=== PATIENT | female | born 2005 | race Caucasian/White ===

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

== ENCOUNTER 2023-02-13 15:37 | Emergency (ER) | payer OTHER, SELFPAY ==
[2023-02-13 15:43] VITALS: BP 118/72; PULSE 70; RESP 18; O2SAT 98; BMI 28.3
[2023-02-13 16:23] LABS: Add Manual Diff / Slide Review NO; Basophils Absolute Auto 0 /uL (0-100); Basophils Percent Auto 0.3 % (0-2); Eosinophils Absolute Auto 100 /uL (0-450); Eosinophils Percent Auto 1.4 % (2-4); Hematocrit 39.7 % (36-46); Hemoglobin 13.4 g/dL (12.0-16.0); Lymphocytes Absolute Auto 3300 /uL (1100-4500); Lymphocytes Percent Auto 37.8 % (25-40); Mean Corpuscular HGB Conc 33.9 % (30-36); Mean Corpuscular Hemoglobin 27.8 PG (26-34); Mean Corpuscular Volume 82.2 fL (80-100); Monocytes Absolute Auto 500 /uL (0-900); Monocytes Percent Auto 6.1 % (3-14); Neutrophils Absolute Auto 4700 /uL (1500-7000); Neutrophils Percent Auto 54.4 % (50-75); Platelet Count 338 X10^3/uL (150-400); Red Blood Cell Count 4.83 X10^6/uL (4.0-5.2); Red Cell Distribution Width 13.9 % (11.6-14.8); White Blood Cell Count 8.7 X10^3/uL (4.5-11.0)
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
[2023-02-13 16:39] LABS: Acetaminophen < 10 ug/mL (10-30); Alanine Aminotransferase 18 IU/L (<35); Albumin 4.3 g/dL (3.5-5.0); Albumin Globulin Ratio 1.5 (1.0-2.8); Alkaline Phosphatase 47 U/L (38-126); Aspartate Aminotransferase 23 IU/L (14-36); BUN Creatinine Ratio 6.9 (6-22); Bilirubin Total 0.4 mg/dL (0.2-1.3); Blood Urea Nitrogen 4 mg/dL (7-17); Carbon Dioxide 24 mmol/L (22-32); Chloride 104 mmol/L (98-107); Estimated Glomerular Filt Rate > 60 mL/min (>60); Ethanol (ETOH) < 10 mg/dL; Globulin 2.9 g/dL (1.7-4.1); Glucose 118 mg/dL (70-100); HEMOLYSIS < 15 (0-50); Potassium 3.5 mmol/L (3.4-5.1); Salicylate < 1.0 mg/dL (<20); Sodium 139 mmol/L (137-145); Total Protein 7.2 g/dL (6.3-8.2)
[2023-02-13 16:57] LABS: COVID19 -Nasal RAPID Negative (Negative)
[2023-02-13 17:01] LABS: Free T4, Direct Thyroxine 1.06 ng/dL (0.78-2.19)
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
[2023-02-13 17:15] LABS: Thyroid Stimulating Hormone 1.02 uIU/mL (0.47-4.68)
[2023-02-13 17:47] LABS: UR Morphine/Opiate cutoff 300 Negative (Negative); Ur Creatinine Normal (Normal); Ur Specific Gravity Normal (Normal); Urine Amphetamines Negative (Negative); Urine Barbiturates Negative (Negative); Urine Benzodiazepines Negative (Negative); Urine Cocaine Negative (Negative); Urine MDMA Negative (Negative); Urine Methadone Negative (Negative); Urine Methamphetamines Negative (Negative); Urine Oxycodone Negative (Negative); Urine Phencyclidine Negative (Negative); Urine Tetrahydrocannabinol Negative (Negative); Urine Tricyclic Antidepressant Negative (Negative); Urine pH Normal (Normal)
--- NOTE | 2023-02-13 19:47 | CM.SWNOTE ---
INFORMATION TECHNOLOGY ADMINISTRATOR Note [facility] accepts patient for inpatient hospitalization. Accepting provider is Dr. Toribio, intake Sgt. Harshal. Patient is accepted at anytime this evening. Nurse to Nurse: [phone] [facility] calls [facility] for transport, S can arrive at 2009. Plan: Patient to transfer to [facility] via [facility] for inpatient hospitalization. Constance Mares, MILLINERY BLOCKER
[2023-02-13 20:28] VITALS: BP 110/65; PULSE 83; RESP 16; O2SAT 97
== END 2023-02-13 20:40 ==
PROVIDERS: Emergency Medicine; Emergency Provider Emergency Medicine
DX: R45.851 Suicidal ideations (principal); Z20.822 Contact with and (suspected) exposure to COVID-19
CPT/HCPCS: 36415; 80053; 80305; 80320; 80329; 81003; 81025; 84439; 84443; 85025; 87635; 99284; 99285; C9803; G0480

== ENCOUNTER 2023-08-06 13:14 | Emergency (ER) | payer OTHER, SELFPAY ==
[2023-08-06 13:21] VITALS: BP 106/60; PULSE 81; RESP 18; TEMP 36.8; O2SAT 96; BMI 24.0
--- NOTE | 2023-08-06 14:29 | DI.RAD.S_ITS ---
PROCEDURE: XR CHEST 1V INDICATIONS: chest pain TECHNIQUE: One view of the chest was acquired. COMPARISON: None. FINDINGS: Surgical changes and devices: None. Lungs and pleura: On this semiupright portable chest examination, no large pneumothorax or large pleural effusions are seen. No focal infiltrates are seen. Mediastinum: Mediastinal contours appear normal. Heart size is normal. Bones and chest wall: No suspicious bony lesions. Overlying soft tissues appear unremarkable. IMPRESSION: Portable chest within normal limits. Dictated by: Doron Williamson M.D. on 08/06/2023 at 13:56 Approved by: Doron Williamson M.D. on 08/06/2023 at 13:57
[2023-08-06] MEDS: SODIUM CHLORIDE 0.9% 1,000 ML 1000 ML IV (14:42)
[2023-08-06 14:47] LABS: Add Manual Diff / Slide Review NO; Basophils Absolute Auto 0 /uL (0-100); Basophils Percent Auto 0.3 % (0-2); Eosinophils Absolute Auto 100 /uL (0-450); Eosinophils Percent Auto 1.2 % (2-4); Hematocrit 38.2 % (36-46); Hemoglobin 13.1 g/dL (12.0-16.0); Lymphocytes Absolute Auto 2900 /uL (1100-4500); Lymphocytes Percent Auto 38.1 % (25-40); Mean Corpuscular HGB Conc 34.4 % (30-36); Mean Corpuscular Hemoglobin 28.4 PG (26-34); Mean Corpuscular Volume 82.6 fL (80-100); Monocytes Absolute Auto 400 /uL (0-900); Monocytes Percent Auto 5.3 % (3-14); Neutrophils Absolute Auto 4200 /uL (1500-7000); Neutrophils Percent Auto 55.1 % (50-75); Platelet Count 312 X10^3/uL (150-400); Red Blood Cell Count 4.62 X10^6/uL (4.0-5.2); Red Cell Distribution Width 13.6 % (11.6-14.8); White Blood Cell Count 7.5 X10^3/uL (4.5-11.0)
[2023-08-06 14:53] LABS: D Dimer < 215 ng/ml (<500)
[2023-08-06 14:55] LABS: Alanine Aminotransferase 14 IU/L (<35); Albumin 4.1 g/dL (3.5-5.0); Albumin Globulin Ratio 1.4 (1.0-2.8); Alkaline Phosphatase 35 U/L (38-126); Aspartate Aminotransferase 22 IU/L (14-36); BUN Creatinine Ratio 12.1 (6-22); Bilirubin Total 0.4 mg/dL (0.2-1.3); Blood Urea Nitrogen 8 mg/dL (7-17); Calcium 9.4 mg/dL (8.4-10.2); Carbon Dioxide 27 mmol/L (22-32); Chloride 105 mmol/L (98-107); Creatine Kinase 67 U/L (30-135); Estimated Glomerular Filt Rate > 60 mL/min (>60); Glucose 112 mg/dL (70-100); HEMOLYSIS < 15 (0-50); Lipase 61 U/L (23-300); Potassium 3.8 mmol/L (3.4-5.1); Sodium 139 mmol/L (137-145); Total Protein 7.1 g/dL (6.3-8.2)
[2023-08-06 15:07] LABS: NT-proBNP (BNP-Adult 18+) < 20 pg/mL (<125); Troponin I < 0.012 ng/mL (0.01-0.034)
--- NOTE | 2023-08-06 15:07 | ED.SYNCOPE ---
HPI - Syncope General Chief Complaint: Syncope Stated Complaint: fainting Time Seen by Provider: 08/06/23 14:29 Source: patient Mode of arrival: Ambulatory Limitations: no limitations History of Present Illness HPI narrative: 18-year-old female report of recurrent episodes of passing out/loss of consciousness. Patient states she is had 9 episodes in the last year most recent was last Monday. She states it is always when she is upright it has never occurred when she seated or lying down. She states typically she will get black out of revision feel dizzy and patient states sometimes she will be able to sit down before occurs but not always. Today she had been looking for chapstick went to get some cream cheese because she was hungry and then realized she would use the bathroom and headed to the bathroom to urinate. She states she got to the bathroom felt dizzy her vision got black she has onto the pillar but she states she fell backwards and hit her head. Patient states these episodes have been witnessed multiple times. She describes 2-10 minutes of unconsciousness. She states sometimes Ob shaking that she is aware of. She denies any bowel or bladder incontinence. She is not sure if she is had any cuts in her mouth afterwards. She states she feels a little short of breath right for happens. Denying any chest pain or pressure. No palpitations. No nausea no vomiting, no diarrhea constipation, no black or bloody stools. Patient states she has been in touch with her primary care physician who has ordered a information systems coordinator but will not be occurring until October. Patient is on venlafaxine, has a Nexplanon in his on trazodone daily she states these are longstanding medications. No new medications or new dosages. [place] teeth removed 5 years ago and other surgeries. No known drug allergies. No tobacco, alcohol or illicit. Denies any cardiac, embolic or syncopal family history. Dr. Robb is her primary care. Patient states she had a tele visit at the end of the month with her physician. Discussed with patient she does not think it is a cardiac issue or rhythm issue. When asked if she is any thoughts about white be the source she states she is not sure but does not think it is that. She does express concern about seizure like activity. Related Data Allergies Allergy/AdvReac Type Severity Reaction Status Date / Time No Known Drug Allergies Allergy Verified 08/06/23 13:28 Review of Systems Review of Systems ROS Unobtainable: All systems reviewed & are unremarkable except as noted in HPI and below Patient History Social History Smoking Status: Never smoker Smoking Status: Never smoker Substance Use Type: does not use Exam Narrative Exam Narrative: GEN: well nourished, well appearing female, alert and oriented x 3, patient appears to be in mild distress. Slightly pressured speech. HEENT: Atraumatic, pupils are equal round reactive to light, extraocular movements are intact, nares are clear, TMs are clear with no fluid, there is no conjunctival pallor. Clear speech. HEART: Regular rate and rhythm without murmur, clicks, rubs. pulses are equal in upper and lower extremities LUNGS:Lungs clear to auscultation, no wheezes, rales, crackles, chest moves symmetrically, no tachypnea accessory muscle use ABD:bowel sounds normal, soft, non-tender, no guarding, rebound, rigidity, no masses noted, no hepatosplenomegaly :No CVA tenderness MSCL: Non-tender, no muscle atrophy, muscles strength 5/5 upper and lower extremities, full range of motion, normal gait NEURO:CN 2-12 intact, sensation normal, no dysarthria or aphasia SKIN: No rash, no erythema no ecchymosis or other skin changes noted. Initial Vital Signs Initial Vital Signs: Vital Signs Temperature 98.3 F 08/06/23 13:21 Pulse Rate 81 08/06/23 13:21 Respiratory Rate 18 08/06/23 13:21 Blood Pressure 106/60 08/06/23 13:21 Pulse Oximetry 96 08/06/23 13:21 Oxygen Delivery Method Room Air 08/06/23 13:21 Scores GCS Julianne coma scale eye opening: Spontaneous Francis coma scale verbal response: Orientated Francis coma scale motor response: Obey commands Francis coma scale total score: 15 Course Orders Ordered: ED Orders 08/06/23 13:33 EKG-12 Lead Stat 08/06/23 14:29 XR chest 1V Stat 08/06/23 14:35 Complete Blood Count AUTO DIFF Stat Comprehensive Metabolic Panel Stat D Dimer Stat Lipase Stat NT-proBNP (BNP-Adult 18+) Stat Troponin & CK Cardiac Panel Stat Discontinued Medications Aspirin (Aspirin 81 Mg Chew Tab) 324 mg PO NOW ONE Stop: 08/06/23 14:30 Last Admin: 08/06/23 15:01 Dose: Not Given Documented By: SOPHIA Sodium Chloride (Normal Saline 0.9%) 1,000 mls @ 1,000 mls/hr IV BOLUS ONE Stop: 08/06/23 15:28 Last Infusion: 08/06/23 15:42 Dose: Infused Documented By: Admin: 08/06/23 14:42 Dose: 1,000 mls/hr Documented By: HOU[place]ON Vital Signs Vital signs: Vital Signs - 8 hr 08/06/23 13:21 08/06/23 15:49 08/06/23 15:49 Temperature 98.3 F Pulse Rate 81 68 Respiratory Rate 18 16 Blood Pressure 106/60 102/60 Pulse Oximetry 96 100 Oxygen Delivery Method Room Air 08/06/23 15:51 Temperature Pulse Rate 70 Respiratory Rate Blood Pressure 102/60 Pulse Oximetry 100 Oxygen Delivery Method Room Air MDM - Syncope Lab Data 08/06/23 14:35 08/06/23 14:35 Labs: Lab Results 08/06/23 Range/Units 14:35 WBC 7.5 (4.5-11.0) X10^3/uL RBC 4.62 (4.0-5.2) X10^6/uL Hgb 13.1 (12.0-16.0) g/dL Hct 38.2 (36-46) % MCV 82.6 (80-100) fL MCH 28.4 (26-34) PG MCHC 34.4 (30-36) % RDW 13.6 (11.6-14.8) % Plt Count 312 (150-400) X10^3/uL Neut % (Auto) 55.1 (50-75) % Lymph % (Auto) 38.1 (25-40) % [place] % (Auto) 5.3 (3-14) % Eos % (Auto) 1.2 L (2-4) % Baso % (Auto) 0.3 (0-2) % Neut # (Auto) 4200 (2505-6963) /uL Lymph # (Auto) 2900 (6798-7267) /uL [place] # (Auto) 400 (0-900) /uL Eos # (Auto) 100 (0-450) /uL Baso # (Auto) 0 (0-100) /uL D-Dimer < 215 (<500) ng/ml Sodium 139 (137-145) mmol/L Potassium 3.8 (3.4-5.1) mmol/L Chloride 105 (98-107) mmol/L Carbon Dioxide 27 (22-32) mmol/L BUN 8 (7-17) mg/dL Creatinine 0.66 (0.52-1.04) mg/dL Estimated GFR > 60 (>60) mL/min BUN/Creatinine Ratio 12.1 (6-22) Glucose 112 H (70-100) mg/dL Calcium 9.4 (8.4-10.2) mg/dL Total Bilirubin 0.4 (0.2-1.3) mg/dL AST 22 (14-36) IU/L ALT 14 (<35) IU/L Alkaline Phosphatase 35 L (38-126) U/L Total Creatine Kinase 67 (30-135) U/L Troponin I < 0.012 (0.01-0.034) ng/mL NT-Pro-B Natriuret Pep < 20 (<125) pg/mL Total Protein 7.1 (6.3-8.2) g/dL Albumin 4.1 (3.5-5.0) g/dL Globulin 3.0 (1.7-4.1) g/dL Albumin/Globulin Ratio 1.4 (1.0-2.8) Lipase 61 (23-300) U/L Point of Care Testing Test Results Negative Imaging Data Chest x-ray: Radiologist's Impression: Close Chest X-Ray (Signed) Doron Williamson - 08/06/23 Ankle X-Ray (Signed) Selvin Whelan - 08/22/[address] [address] XRay Report Signed Patient: Shannan Alexander MR#: [id number] : 2005 Acct:[id number] Age/Sex: 18 / F Date of Service: 08/06/23 Loc: ED Accession Number: [id number] Procedure: XR chest 1V Ordering Provider: Davida Arriaga D.O. PROCEDURE: XR CHEST 1V INDICATIONS: chest pain TECHNIQUE: One view of the chest was acquired. COMPARISON: None. FINDINGS: Surgical changes and devices: None. Lungs and pleura: On this semiupright portable chest examination, no large pneumothorax or large pleural effusions are seen. No focal infiltrates are seen. Mediastinum: Mediastinal contours appear normal. Heart size is normal. Bones and chest wall: No suspicious bony lesions. Overlying soft tissues appear unremarkable. IMPRESSION: Portable chest within normal limits. Dictated by: Doron Williamson M.D. on 08/06/2023 at 13:56 Approved by: Doron Williamson M.D. on 08/06/2023 at 13:57 ECG Data Attestation: I personally reviewed and interpreted this ECG as follows: Prior ECG tracings: not available for review Interpretation: Sinus rhythm rate of 76 CT 124 QRS 82 QTC 427. No acute ST elevation or depression appreciated. No priors for comparison MDM Narrative Medical decision making narrative: 18-year-old female with complaint of recurrent syncopal like episodes, patient noted some shaking but she was aware this not had any incontinence being my suspicion for seizure lower. She has not had information systems coordinator or other workup. She states these episodes have been witnessed. They have always happens when she is upright number when she is seated or lying down. Blood pressure was initially soft at 106/60, she would received some fluids and improved, no tachycardia no hypoxia, no elevated respiratory rate. Patient's CBC is negative D-dimer is negative CMP shows no acute changes LFTs, troponin and BNP are all negative with a negative chest x-ray no acute changes on EKG or rhythm changes on telemetry. Point of care urine preg shows is negative. Obtained records from [facility]. Reviewed. No other red flag symptoms. Discussed with patient would recommend that she have Holter monitor to complete that portion, there is some additional testing that would be appropriate. This time with recurrent reported syncopal type episodes discussed that she probably should be driving regularly elderly seemed to happen more when she is upright. Discussed return precautions all questions answered. Discharge Plan Departure Patient Disposition: Home Clinical Impression: Syncope Instructions: DI for Syncope in Adults (Fainting) Activity Restrictions/Additional Instructions: Your workup today overall was reassuring but I do recommend that you have additional workup. Referral is included below which may be helpful to move your workup along faster. I would recommend no driving if you are having recurrent episodes with loss of consciousness throughout the year until you are cleared by your physician. Please return for recurrent episodes, severe headaches, new chest pain, shortness of breath, persistent vomiting, new swelling in her extremities, new weakness numbness loss of sensation or other new or concerning changes. Referrals: ProviderCarlos [Primary Care Provider] - Stand Alone Forms: Patient Portal/API
[2023-08-06 15:49] VITALS: BP 102/60; PULSE 68; RESP 16; O2SAT 100
[2023-08-06 15:51] VITALS: BP 102/60; PULSE 70; O2SAT 100
== END 2023-08-06 16:46 | disposition home or self-care (01) ==
PROVIDERS: Emergency Provider Emergency Medicine
DX: R55 Syncope and collapse (principal); R11.2 Nausea with vomiting, unspecified
CPT/HCPCS: 36415; 71045; 80053; 81025; 82550; 83690; 83880; 84484; 85025; 85379; 93005; 99281; 99282; 99284

== ENCOUNTER 2023-08-06 21:38 | Emergency (ER) | payer OTHER, SELFPAY ==
[2023-08-06 21:44] VITALS: BP 121/74; PULSE 72; RESP 16; TEMP 36.9; O2SAT 99
--- NOTE | 2023-08-06 22:41 | ED.NAVMDI ---
HPI - Nausea/Vomiting/Diarrhea General Chief complaint: Nausea/Vomiting/Diarrhea Stated complaint: Earlier syncope Time Seen by Provider: 08/06/23 22:41 Source: patient Mode of arrival: Ambulatory History of Present Illness HPI Narrative: Patient 18-year-old female who presented earlier today with a syncopal episode. She is had multiple syncopal episodes over the last year at least 9 different episode she had 1 today. She would full workup blood work EKG ultimately discharged home with encouraged for Holter monitor which she has not had yet. She reports that the DOD is slow. Today she went home and started having some abdominal cramping and vomited couple of times. No diarrhea. She reports she still has a headache. She is concern discharge instructions told her to come back if she was vomiting. She has no numbness tingling or weakness no further vomiting but is having cramping in her lower abdomen. No diarrhea. Related Data Previous Rx's Medication Instructions Recorded ondansetron 4 mg disintegrating 4 mg PO Q8H PRN nausea and 08/06/23 tablet vomiting #10 tabs Allergies Allergy/AdvReac Type Severity Reaction Status Date / Time No Known Drug Allergies Allergy Verified 08/06/23 13:28 Patient History Social History Smoking Status: Never smoker Smoking Status: Never smoker Substance Use Type: does not use Exam Initial Vital Signs Initial Vital Signs: Vital Signs Temperature 98.4 F 08/06/23 21:44 Pulse Rate 72 08/06/23 21:44 Respiratory Rate 16 08/06/23 21:44 Blood Pressure 121/74 08/06/23 21:44 Pulse Oximetry 99 08/06/23 21:44 Oxygen Delivery Method Room Air 08/06/23 21:44 GENERAL: Well-appearing, well-nourished and in no acute distress. CARDIOVASCULAR: peripheral pulses in tact, cap refill <2 sec RESPIRATORY: No respiratory distress, speaks in full sentences without difficulty ABDOMEN: Soft, mild lower abdominal tenderness all across abdomen EXTREMITIES: Normal range of motion, no clubbing or edema. Neurovascularly intact NEUROLOGICAL: Cranial nerves II through XII grossly intact. Normal gait and speech. SKIN: Warm, dry, no petechiae, no rashes or lesions. Scores GCS [place] coma scale eye opening: Spontaneous [place] coma scale verbal response: Orientated [place] coma scale motor response: Obey commands Julianne coma scale total score: 15 Course Orders Ordered: Discontinued Medications Ondansetron HCl (Ondansetron 4 Mg Odt Prepack) 1 bottle MISC SEEINSTR ONE Stop: 08/06/23 22:48 Last Admin: 08/06/23 22:53 Dose: 1 bottle Documented By: HARPER Vital Signs Vital signs: Vital Signs - 8 hr 08/06/23 21:44 08/06/23 23:02 Temperature 98.4 F Pulse Rate 72 65 Respiratory Rate 16 16 Blood Pressure 121/74 108/73 Pulse Oximetry 99 99 Oxygen Delivery Method Room Air Room Air MDM - Nausea/Vomiting/Diarrhea MDM Narrative Medical decision making narrative: Patient 18-year-old female who presents today with nausea vomiting abdominal pain. She passed out earlier today had full workup there is no need to do any further blood work. I do not think that her vomiting is related to head injury she is tender and having cramp her lower abdomen. I suspect probably more of a gastroenteritis. Instruct oral rehydration tachy need she is given Zofran here in the ED and I have written her a prescription. At this time no need for any imaging. She is appropriate. Discharge Plan Departure Patient Disposition: Home Clinical Impression: Nausea & vomiting Instructions: Nausea and Vomiting-Adult Activity Restrictions/Additional Instructions: *You have been diagnosed with nausea vomiting *What to do: At this time with your ongoing abdominal pain I do not think that you are vomiting is related to your head injury. Recommend resting continue to try and get a Holter monitor increase fluids as tolerated Tylenol and Motrin as needed *Continue to take medications as directed Zofran 4 mg every 8 hours if needed for nausea or vomit *Follow up with your primary care provider in 2-3 days or call [phone] *Return to ER if you should have any new, worsening or concerning symptoms Prescriptions: New ondansetron 4 mg tablet,disintegrating 4 mg PO Q8H PRN (Reason: nausea and vomiting) Qty: 10 0RF Referrals: ProviderCarlos [Primary Care Provider] - Stand Alone Forms: Patient Portal/API
[2023-08-06] MEDS: ONDANSETRON 4 MG ODT PREPACK 1 BOTTLE MISC (22:53)
[2023-08-06 23:02] VITALS: BP 108/73; PULSE 65; RESP 16; O2SAT 99
== END 2023-08-06 23:02 | disposition home or self-care (01) ==
PROVIDERS: Emergency Provider Emergency Medicine
DX: R11.2 Nausea with vomiting, unspecified (principal)

== ENCOUNTER 2023-08-08 14:09 | Emergency (ER) | payer OTHER, SELFPAY ==
[2023-08-08 14:37] VITALS: BP 105/69; PULSE 87; RESP 16; TEMP 36.9; O2SAT 96; BMI 24.0
== END 2023-08-08 15:51 | disposition left against medical advice (07) ==
PROVIDERS: Emergency Provider Emergency Medicine
DX: R11.10 Vomiting, unspecified (principal)
CPT/HCPCS: 99281

== ENCOUNTER 2023-08-13 18:52 | Emergency (ER) | payer OTHER, SELFPAY ==
[2023-08-13] VITALS (7 sets, daily range): BP systolic 88–105; BP diastolic 55–66; PULSE 64–98; RESP 16–24; TEMP 36.6; O2SAT 97–99; BMI 52.9
--- NOTE | 2023-08-13 22:36 | ED_ITS ---
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 I reviewed recent emergency department notes, she was seen recently with syncope her laboratory workup that was unremarkable and also she refilled with nausea and vomiting. Patient reports that she is had 4 or 5 episodes of syncope today. At times got lightheaded previously says that she fell down a couple of times and remembers hitting the floor. He is not having any chest pain she is not having any vomiting she is not having any hematemesis or melena. She is had episodic syncope for some time now workup is as far been unrevealing, she says process of having a Holter monitor done. She is taking Effexor and trazodone these medication doses have not changed recently. She is not using alcohol 30 degree extent or recreational drugs. There is no family history of sudden , she has no history of any identified structural cardiac abnormalities or dysrhythmias. She is presently asymptomatic. Related Data Previous Rx's Medication Instructions Recorded ondansetron 4 mg disintegrating 4 mg PO Q8H PRN nausea and 08/06/23 tablet vomiting #10 tabs ondansetron 4 mg disintegrating 4 mg PO Q8H PRN nausea and 08/13/23 tablet vomiting #10 tabs Allergies Allergy/AdvReac Type Severity Reaction Status Date / Time No Known Drug Allergies Allergy Verified 08/06/23 13:28 Patient History Social History Smoking Status: Never smoker Smoking Status: Never smoker Substance Use Type: does not use Exam Initial Vital Signs Initial Vital Signs: Vital Signs Temperature 97.9 F 08/13/23 19:03 Pulse Rate 79 08/13/23 19:03 Respiratory Rate 20 08/13/23 19:03 Blood Pressure 93/63 08/13/23 19:03 Pulse Oximetry 98 08/13/23 19:03 Oxygen Delivery Method Room Air 08/13/23 19:03 Vital are without orthostatic changes Const General: cooperative, healthy appearing and No acute distress HENAZ Head: normocephalic and atraumatic Eyes Pupils: PERRL EOM: EOM intact bilaterally Neck Thyroid: thyroid normal Carotids: normal carotid upstroke and no bruits Resp Effort & Inspection: normal respiratory effort Auscultation: clear to auscultation bilaterally GI Inspection: normal to inspection Other: Nontender without mass Skin Other: Warm and dry Neuro General: patient alert, patient oriented x3, moves all extremities and no focal motor deficits Course Orders Ordered: ED Orders 08/13/23 19:12 EKG-12 Lead Stat Vital Signs Vital signs: Vital Signs - 8 hr 08/13/23 19:03 08/13/23 19:09 08/13/23 19:09 Temperature 97.9 F Pulse Rate 79 80 Pulse Rate [Orthostatic Lying] Pulse Rate [Orthostatic Sitting] Pulse Rate [Orthostatic Standing] Respiratory Rate 20 18 Blood Pressure 93/63 93/63 Blood Pressure [Orthostatic Lying] Blood Pressure [Orthostatic Sitting] Blood Pressure [Orthostatic Standing] Pulse Oximetry 98 98 Oxygen Delivery Method Room Air 08/13/23 19:18 08/13/23 19:18 08/13/23 19:25 Temperature Pulse Rate 87 Pulse Rate [Orthostatic Lying] 74 Pulse Rate [Orthostatic Sitting] 69 Pulse Rate [Orthostatic Standing] 98 H Respiratory Rate 24 Blood Pressure 96/66 Blood Pressure [Orthostatic Lying] 88/55 L Blood Pressure [Orthostatic Sitting] 93/66 Blood Pressure [Orthostatic Standing] 98/66 Pulse Oximetry 98 Oxygen Delivery Method 08/13/23 19:30 08/13/23 19:30 08/13/23 19:46 Temperature Pulse Rate 69 64 Pulse Rate [Orthostatic Lying] Pulse Rate [Orthostatic Sitting] Pulse Rate [Orthostatic Standing] Respiratory Rate 20 16 Blood Pressure 94/56 L Blood Pressure [Orthostatic Lying] Blood Pressure [Orthostatic Sitting] Blood Pressure [Orthostatic Standing] Pulse Oximetry 97 99 Oxygen Delivery Method 08/13/23 19:46 08/13/23 20:00 08/13/23 20:00 Temperature Pulse Rate 65 Pulse Rate [Orthostatic Lying] Pulse Rate [Orthostatic Sitting] Pulse Rate [Orthostatic Standing] Respiratory Rate 21 Blood Pressure 105/59 L 95/62 Blood Pressure [Orthostatic Lying] Blood Pressure [Orthostatic Sitting] Blood Pressure [Orthostatic Standing] Pulse Oximetry 99 Oxygen Delivery Method MDM - Syncope Lab Data Lab results narrative: Patient is not Labs: Point of Care Testing Test Results Negative ECG Data Interpretation: EKG shows normal sinus rhythm at 84 intervals are normal there is no pre axial dictation no evidence of chamber hypertrophy access is normal MDM Narrative Medical decision making narrative: Previously healthy 18-year-old female having multiple episodes of syncope. She has not had any point had a documented dysrhythmia and was in sinus rhythm here with a normal EKG. Does not have significant electrolyte disturbance or anemia she is not . Considered seizure, history is not consistent with seizure. This may be a psychogenic phenomena, we would not be able to definitively identify that in the emergency department. She is in the process of getting a Holter monitor done which I think is an appropriate next step. Recommended she continue her outpatient workup through the [place]. Discharge Plan Departure Patient Disposition: Home Clinical Impression: Syncope Activity Restrictions/Additional Instructions: Emergency department evaluation today is reassuring. No immediately dangerous cause for fainting is identified. I think it is safe for you to go home. You can continue your previous home medications. I recommend you continue with the previously planned workup, hopefully you could be seen sooner to expedite that but this needs to occur with your primary care provider. You are always welcome to return at any point for recurrent symptoms. I recommended that you not work on ladders etcetera were having a fainting episode would be dangerous to view. Take tomorrow off from work to rest. Prescriptions: New ondansetron 4 mg tablet,disintegrating 4 mg PO Q8H PRN (Reason: nausea and vomiting) Qty: 10 0RF No Action ondansetron 4 mg tablet,disintegrating 4 mg PO Q8H PRN (Reason: nausea and vomiting) Qty: 10 0RF Referrals: ProviderCarlos [Primary Care Provider] - Stand Alone Forms: Patient Portal/API, Work Release Note
== END 2023-08-13 20:30 | disposition home or self-care (01) ==
PROVIDERS: Emergency Provider Emergency Medicine
DX: R55 Syncope and collapse (principal); R11.2 Nausea with vomiting, unspecified; R07.9 Chest pain, unspecified
CPT/HCPCS: 81025; 93005; 93010; 99282; 99283

== ENCOUNTER 2023-08-15 00:54 | Emergency (ER) | payer OTHER, SELFPAY ==
[2023-08-15 01:05] VITALS: BP 108/63; PULSE 78; RESP 18; TEMP 36.6; O2SAT 98; BMI 24.0
--- NOTE | 2023-08-15 01:08 | ED_ITS ---
HPI - General Adult General Chief complaint: Syncope Stated complaint: fainting Time Seen by Provider: 08/15/23 01:07 History of Present Illness HPI narrative: 18-year-old woman with no identified significant medical history presents with syncope. She has had at least 11 episodes similar to this this year. [place] has been seen in the emergency department a couple of times. She had full laboratory workup on August 06 that was unremarkable. She was seen in the emergency department yesterday noting 4-5 episodes of syncope. She describes knowing that it is going to happen as her vision will go dark, she does not describe this as a tunnel closing but an acute loss of vision, then she gets dizzy and then she wakes up. She typically has time to low her herself to the floor so has not had significant falls. She is scheduled for some type of cardiac monitoring but not until October of this year. 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 She is currently on Effexor and trazodone with no changes to these medications. She does not describe these episodes happening with significant stress. 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 She has never had symptoms while she is laying or sitting. Related Data Previous Rx's Medication Instructions Recorded ondansetron 4 mg disintegrating 4 mg PO Q8H PRN nausea and 08/06/23 tablet vomiting #10 tabs ondansetron 4 mg disintegrating 4 mg PO Q8H PRN nausea and 08/13/23 tablet vomiting #10 tabs Allergies Allergy/AdvReac Type Severity Reaction Status Date / Time No Known Drug Allergies Allergy Verified 08/06/23 13:28 Review of Systems Review of Systems Narrative: Pertinent positive and negative findings as per HPI Patient History Social History Smoking Status: Never smoker Smoking Status: Never smoker Substance Use Type: does not use Exam Initial Vital Signs Initial Vital Signs: Vital Signs Temperature 97.9 F 08/15/23 01:05 Pulse Rate 78 08/15/23 01:05 Respiratory Rate 18 08/15/23 01:05 Blood Pressure 108/63 08/15/23 01:05 Pulse Oximetry 98 08/15/23 01:05 Oxygen Delivery Method Room Air 08/15/23 01:05 General: Healthy appearing, in no acute distress. Able to give a complete and coherent history. Well-nourished well-developed. She is not orthostatic by heart rate or blood pressure. HEENT: Moist mucous membranes, normal sclera with reactive pupils, Neck: No JVD, supple Respiratory: Lungs are clear to auscultation, no wheezing no rales no rhonchi. Full and symmetrical air movement Cardiac: Regular rate and rhythm no murmurs no bruits Abdomen: Soft, nontender, good bowel tones, no flank pain Skin: Warm and dry, no rashes Neurologic: Grossly neurologically intact with no obvious asymmetries or abnormalities, she is not hyperreflexic today Extremities: No trauma, well perfused Psych: Cooperative, appropriate insight and affect Course Orders Ordered: ED Orders 08/15/23 01:08 EKG-12 Lead Stat 08/15/23 01:11 CT head/brain wo con Stat Vital Signs Vital signs: Vital Signs - 8 hr 08/15/23 01:05 08/15/23 01:14 08/15/23 01:18 Temperature 97.9 F Pulse Rate 78 75 98 H Respiratory Rate 18 24 20 Blood Pressure 108/63 Pulse Oximetry 98 98 97 Oxygen Delivery Method Room Air 08/15/23 01:18 08/15/23 01:30 08/15/23 01:30 Temperature Pulse Rate 66 Respiratory Rate 21 Blood Pressure 110/64 107/70 Pulse Oximetry 98 Oxygen Delivery Method 08/15/23 01:51 08/15/23 01:51 Temperature Pulse Rate 72 Respiratory Rate 16 Blood Pressure 100/69 Pulse Oximetry 100 Oxygen Delivery Method Medical Decision Making MDM Narrative Medical decision making narrative: CC: Recurrent episodes of syncope Complicating co-morbidities: Active duty [employer], Data collected from: patient, Medical records reviewed: Multiple ER visits with similar findings reviewed Differential considered: Seizure, psychogenic seizure, cardiac dysrhythmia, pots syndrome Exam documented above, pertinent findings include: Completely benign exam with no evidence of orthostatic hypotension Lab Test results independently reviewed as above. Pertinent findings: On the August 13 she had a urine test that was negative On August 06 she had a CBC that was unremarkable as well as chemistries that were unremarkable. Independently reviewed EKG EKG today shows sinus rhythm at a rate of 72 with normal intervals, normal axis and no acute ischemic findings. With telemetry monitoring EKGs with previous visits there have been no cardiac abnormalities or dysrhythmias appreciated Imaging studies independently reviewed: A August 06 she had a chest x-ray that was unremarkable. Because she has not had any head imaging since all of these activities started a CT scan of the brain is ordered today. The CT scan is unremarkable today Discussion: 18-year-old woman with recurrent episodes of syncope and ER visits. Uncertain etiology but all workup to date has been fairly unremarkable. There does not appear to be any intracranial masses or abnormalities, no signs of infection, urinary tract infection, , electrolyte abnormalities. While in the emergency department her telemetry recordings have all showed normal sinus rhythm as have EKGs. We will ask her to follow-up with her primary care physician at some point a Zio patch may be and she may benefit from both cardiac and neurologic consultation to discuss primary rhythm abnormalities as well as possibility of seizure or pseudo-seizure. This time there is no evidence for life-threatening abnormalities, infection, orthostasis, significant anemia or reason for hospital admission or further workup. Reassurance is given and she is safe for discharge home Discharge Plan Departure Patient Disposition: Home Clinical Impression: Syncope Instructions: DI for Syncope in Adults (Fainting) Activity Restrictions/Additional Instructions: Thank you for coming in today These recurrent episodes of passing out sound very frustrating for you. With your workup visits we have shown that these episodes are not happening because you were sick with a bacterial or viral infection nor or you dehydrated. We did a CT scan tonight that did not show any abnormalities within your brain. You have had multiple workups looking for urinary tract infection, you are not , there is no evidence of kidney/liver function abnormalities and no electrolyte abnormalities At this time, the remainder of your workup really needs to be completed as an outpatient and may well include 1: Outpatient cardiac monitoring with either a Zio patch or Holter monitor. This will be helpful in letting us know if there is any type of heart rhythm abnormality when you have an episode 2: Consultation with Neurology and likely an outpatient EEG to see if this may be a seizure disorder or a component of pseudo seizuress 3: Consultation with Cardiology to review outpatient cardiac monitoring, consider tilt-table testing or alternative workup for POTS syndrome and consideration of additional cardiac testing including possibility of echocardiogram. Unless you have new symptoms with these episodes I do not think that further ER evaluation is going to be helpful. If you do fall down enough that you have any type of injury or hit your head that would be a reasonable reason to return to the emergency department. If you develop new findings that might point in a different direction for an acute workup, again the emergency department would be appropriate. Until this is figured out, I would recommend that you do not drive operate heavy machinery or work in high places where falling could be life-threatening (such as on ladders or scaffolding) Prescriptions: No Action ondansetron 4 mg tablet,disintegrating 4 mg PO Q8H PRN (Reason: nausea and vomiting) Qty: 10 0RF ondansetron 4 mg tablet,disintegrating 4 mg PO Q8H PRN (Reason: nausea and vomiting) Qty: 10 0RF Referrals: ProviderCarlos [Primary Care Provider] - Stand Alone Forms: Patient Portal/API, Work Release Note
--- NOTE | 2023-08-15 01:11 | DI.CT.S_ITS ---
PROCEDURE: CT HEAD/BRAIN WO CON INDICATIONS: recurrent syncope and falling TECHNIQUE: Noncontrast 4.5 mm thick angled axial sections acquired from the foramen magnum to the vertex, with coronal and sagittal reformats. For radiation dose reduction, the following was used: automated exposure control, adjustment of mA and/or kV according to patient size. COMPARISON: None. FINDINGS: Image quality: Excellent. CSF spaces: Basal cisterns are patent. No extra-axial fluid collections. Ventricles are normal in size and shape. Brain: No midline shift. No intracranial masses or hemorrhage. Moralez-white matter interface is normal. Skull and face: Calvarium and visualized facial bones are intact, without suspicious lesions. Sinuses: Visualized sinuses and mastoids are clear. IMPRESSION: No acute intracranial pathology. Dictated by: Tyree Godoy M.D. on 08/15/2023 at 2:03 Approved by: Tyree Godoy M.D. on 08/15/2023 at 2:04
[2023-08-15 01:14] VITALS: PULSE 75; RESP 24; O2SAT 98
[2023-08-15 01:18] VITALS: BP 110/64; PULSE 98; RESP 20; O2SAT 97
[2023-08-15 01:30] VITALS: BP 107/70; PULSE 66; RESP 21; O2SAT 98
--- NOTE | 2023-08-15 01:50 | PC.NURSE ---
Patient states fainting this evening after using the bathroom. Patient was seen last night for similar episodes and has follow-up appintment with PCP tomorrow and appt for holter monitor in Oct. Patient states she struck back of head in bathroom when fainting this evening, and c/o body aches x1 week. Patient denies any symptoms prior to episode this evening.
[2023-08-15 01:51] VITALS: BP 100/69; PULSE 72; RESP 16; O2SAT 100
== END 2023-08-15 02:51 | disposition home or self-care (01) ==
PROVIDERS: Emergency Provider Emergency Medicine
DX: R55 Syncope and collapse (principal); R07.9 Chest pain, unspecified
CPT/HCPCS: 36415; 70450; 93005; 93010; 99283; 99284

== ENCOUNTER 2023-11-12 18:12 | Emergency (ER) | payer OTHER, SELFPAY ==
[2023-11-12 18:16] VITALS: BP 95/62; PULSE 86; RESP 18; TEMP 36.7; O2SAT 100; BMI 24.0
--- NOTE | 2023-11-12 18:45 | ED_ITS ---
[facility] - General Adult General Chief complaint: Abdominal Pain Stated complaint: abdominal pain Time Seen by Provider: 11/12/23 18:35 Source: patient Mode of arrival: Ambulatory History of Present Illness HPI narrative: 18-year-old woman with a history of borderline personality disorder presents complaining of 4 months of severe lower abdominal pain that is typically only able to be treated by ?crying and curling up in a ball. She is tried heating pads, walking, relaxing, ibuprofen and Tylenol have not been helpful. She was seen in the emergency department back in August with complaints of recurrent syncope and no etiology elucidated. At that time she was not complaining of any abdominal pain. She states that she was seen at [facility] an ultrasound was done, OBGYN referral was initiated. She had a vaginal swab at 1 point and was told that it was unremarkable. Current method of control is Nexplanon that was implanted in April of 2022. States she still has relatively heavy periods even with that. She does not report nausea or vomiting. She notes that this last week she has been fairly constipated. She does not give a history of intermittent constipation and diarrhea. She receives her primary care [facility] [employer] [facility] Related Data Previous Rx's Medication Instructions Recorded ondansetron 4 mg disintegrating 4 mg PO Q8H PRN nausea and 08/06/23 tablet vomiting #10 tabs ondansetron 4 mg disintegrating 4 mg PO Q8H PRN nausea and 08/13/23 tablet vomiting #10 tabs dicyclomine 20 mg tablet 20 mg PO TID bowel or bladder 11/12/23 spasm and pain #20 tabs nitrofurantoin 100 mg PO BID #20 caps 11/12/23 monohydrate/macrocrystals 100 mg capsule (Macrobid) Allergies Allergy/AdvReac Type Severity Reaction Status Date / Time No Known Drug Allergies Allergy Verified 11/12/23 18:15 Review of Systems Review of Systems Narrative: Pertinent positive and negative findings as per HPI Patient History Social History Smoking Status: Never smoker Smoking Status: Never smoker Substance Use Type: does not use Exam Initial Vital Signs Initial Vital Signs: Vital Signs Temperature 98.1 F 11/12/23 18:16 Pulse Rate 86 11/12/23 18:16 Respiratory Rate 18 11/12/23 18:16 Blood Pressure 95/62 11/12/23 18:16 Pulse Oximetry 100 11/12/23 18:16 Oxygen Delivery Method Room Air 11/12/23 18:16 General: Healthy appearing, in no acute distress but complaining of abdominal pain. Able to give a complete and coherent history. Well-nourished well- developed HEENT: Moist mucous membranes, normal sclera with reactive pupils, Neck: No JVD, supple Respiratory: Lungs are clear to auscultation, no wheezing no rales no rhonchi. Full and symmetrical air movement Cardiac: Regular rate and rhythm no murmurs no bruits Abdomen: Soft, tender in the lower abdomen and bilateral flanks without rebound or guarding. Skin: Warm and dry, no rashes Neurologic: Grossly neurologically intact with no obvious asymmetries or abnormalities Extremities: No trauma, well perfused Psych: Cooperative, appropriate insight and affect Course Orders Ordered: ED Orders 11/12/23 18:39 Urine Culture Stat Urine Microscopic Stat 11/12/23 18:55 Complete Blood Count AUTO DIFF Stat Comprehensive Metabolic Panel Stat Lipase Stat 11/12/23 19:03 CT abdomen pelvis w con Stat Ondansetron HCl (Ondansetron 4 Mg/2 Ml Inj) 4 mg IV NOW PRN PRN Reason: Nausea And Vomiting Ondansetron HCl (Ondansetron 4 Mg Odt) 4 mg PO NOW PRN PRN Reason: Nausea And Vomiting Discontinued Medications Dicyclomine HCl (Dicyclomine 10 Mg Capsule) 20 mg PO NOW ONE Stop: 11/12/23 20:03 Last Admin: 11/12/23 20:14 Dose: 20 mg Documented By: ALPA Sodium Chloride (Normal Saline 0.9%) 1,000 mls @ 1,000 mls/hr IV BOLUS ONE Stop: 11/12/23 20:02 Last Infusion: 11/12/23 20:25 Dose: Infused Documented By: Admin: 11/12/23 19:19 Dose: 1,000 mls/hr Documented By: ALPA Ketorolac Tromethamine (Ketorolac 30 Mg/Ml Vial) 15 mg IV NOW ONE Stop: 11/12/23 19:04 Last Admin: 11/12/23 19:20 Dose: 15 mg Documented By: ALPA Ondansetron HCl (Ondansetron 4 Mg/2 Ml Inj) 4 mg IV NOW ONE Stop: 11/12/23 19:04 Last Admin: 11/12/23 19:20 Dose: 4 mg Documented By: KF Vital Signs Vital signs: Vital Signs - 8 hr 11/12/23 18:16 Temperature 98.1 F Pulse Rate 86 Respiratory Rate 18 Blood Pressure 95/62 Pulse Oximetry 100 Oxygen Delivery Method Room Air Medical Decision Making Lab Data 11/12/23 18:55 11/12/23 18:55 Labs: Lab Results 11/12/23 11/12/23 Range/Units 18:39 18:55 WBC 10.7 (4.5-11.0) X10^3/uL RBC 4.61 (4.0-5.2) X10^6/uL Hgb 13.0 (12.0-16.0) g/dL Hct 38.3 (36-46) % MCV 83.1 (80-100) fL MCH 28.3 (26-34) PG MCHC 34.1 (30-36) % RDW 13.5 (11.6-14.8) % Plt Count 330 (150-400) X10^3/uL Neut % (Auto) 61.4 (50-75) % Lymph % (Auto) 31.1 (25-40) % Bartholomew % (Auto) 5.9 (3-14) % Eos % (Auto) 1.3 L (2-4) % Baso % (Auto) 0.3 (0-2) % Neut # (Auto) 6600 (5996-8629) /uL Lymph # (Auto) 3300 (8035-9639) /uL Bartholomew # (Auto) 600 (0-900) /uL Eos # (Auto) 100 (0-450) /uL Baso # (Auto) 0 (0-100) /uL Sodium 139 (137-145) mmol/L Potassium 3.6 (3.4-5.1) mmol/L Chloride 103 (98-107) mmol/L Carbon Dioxide 25 (22-32) mmol/L BUN 7 (7-17) mg/dL Creatinine 0.57 (0.52-1.04) mg/dL Estimated GFR > 60 (>60) mL/min BUN/Creatinine Ratio 12.3 (6-22) Glucose 116 H (70-100) mg/dL Calcium 8.8 (8.4-10.2) mg/dL Total Bilirubin 0.3 (0.2-1.3) mg/dL AST 20 (14-36) IU/L ALT 13 (<35) IU/L Alkaline Phosphatase 43 (38-126) U/L Total Protein 6.9 (6.3-8.2) g/dL Albumin 4.0 (3.5-5.0) g/dL Globulin 2.9 (1.7-4.1) g/dL Albumin/Globulin Ratio 1.4 (1.0-2.8) Lipase 74 (23-300) U/L Urine RBC 1-5/hpf (0-5/HPF) Urine WBC 10-30/hpf H (0-5/HPF) Ur Squamous Epith Cells 10-30 /hpf H (0-5/HPF) Calcium Oxalate Crystal Few H Urine Bacteria Moderate (10-30) H (None) Ur Culture Indicated? Specimen cultured Vol Urine Centrifuged 10ml (spun) Point of Care Testing Test Results Negative Urine Dip Bedside Urine Glucose Negative Bedside Urine Bilirubin + 1 Bedside Urine Ketone - Negative Urine Specific [place] 1.030 Bedside Urine Occult Blood +++ Bedside Urine pH 5.5 Bedside Urine Protein + 30 Bedside Urine Urobilinogen - Negative Bedside Urine Nitrite - Negative Bedside Urine Leukocytes +/- 15 Esterase Point of care testing: Point of Care Testing Test Results Negative Urine Dip Bedside Urine Glucose Negative Bedside Urine Bilirubin + 1 Bedside Urine Ketone - Negative Urine Specific [place] 1.030 Bedside Urine Occult Blood +++ Bedside Urine pH 5.5 Bedside Urine Protein + 30 Bedside Urine Urobilinogen - Negative Bedside Urine Nitrite - Negative Bedside Urine Leukocytes +/- 15 Esterase [facility] Narrative Medical decision making narrative: CC: 4 months of abdominal pain Complicating co-morbidities: Bipolar personality disorder Data collected from: patient Medical records reviewed: Notes from workup in August from this emergency department are reviewed. Ultrasound from [facility] done October 16, 2023 reviewed. Noted normal thickness endometrium, multiple follicles in each ovary with otherwise normal sonographic appearance of the ovaries. No adnexal masses no cystic lesions greater than 3 cm. Uterus was anteverted and appropriate size at 9 x 3 x 4 cm. No fibroids noted. Differential considered: Irritable bowel syndrome, constipation, appendicitis chronic, chronic diverticulitis, endometriosis, pelvic inflammatory disease, interstitial cystitis Exam documented above, pertinent findings include: Patient is in no acute distress and does have some mild lower abdominal tenderness without rebound or guarding. Reports no vaginal discharge Lab Test results independently reviewed as above. Pertinent findings: CBC is unremarkable without leukocytosis Chemistries are unremarkable with normal liver studies Urine shows 10-30 white cells, 10-30 squamous cells moderate bacteria urine has been cultured Imaging studies independently reviewed: CT scan of the abdomen shows no bowel obstruction or abnormal bowel wall thickening. Normal appendix no free fluid or free air. Question of a right ovarian cyst that is 2 x 2 cm in size. Also discussion of questionable bladder wall thickening concerning for low-grade cystitis. No renal stones no hydronephrosis. Independent review suggests a moderate amount of stool but I do not think that constipation is her underlying source of pain Treatments: Parenteral fluids, Zofran, Toradol, Bentyl orally Re-evaluations: Discussion: Findings and relatively benign workup are reviewed with the patient. Reassured her that there is no evidence of bowel obstruction, tumors or masses, acute pyelonephritis, kidney stone, appendicitis, diverticulitis, pelvic inflammatory disease, ruptured ovarian cyst, endometriosis is less likely. Did discuss the possibility of low-grade bladder infection and or interstitial cystitis. Will suggest that she take 10 days of nitrofurantoin to reduce some of the inflammation in her bladder, we will also give her a prescription for Pyridium and see if this may be of any effect. She was given a dose of p.o. Bentyl to see if the antispasmodic medication is beneficial. We will give her a prescription to see if this is of any help at home. She reports that her follow up with her primary care provider is in the distant future and she has on a list for any cancellations. She needs this visit to initiate a referral to OBGYN. I think OBGYN referral is reasonable for developing chronic pelvic pain at this point and they certainly can review the possibility of interstitial cystitis with her. This time there is no indication for acute surgery, significant infection, additional imaging or hospitalization. Patient is quite frustrated and asks about other pain medications. We talked about the ineffectiveness of narcotics and dealing with chronic pain and particularly chronic pelvic pain. Somebody suggested tramadol which I believe is minimally effective and has many of the same side effects as narcotics. At some point trial of low-dose amitriptyline may be beneficial but will need to be done by either her primary care doctor or OBGYN. She is safe for discharge home Discharge Plan Departure Patient Disposition: Home Clinical Impression: Pelvic pain Urinary tract infection Qualifiers: Urinary tract infection type: acute cystitis Hematuria presence: with hematuria Qualified Code(s): N30.01 - Acute cystitis with hematuria Instructions: DI for Interstitial Cystitis, Chronic Pelvic Pain-Female Activity Restrictions/Additional Instructions: Thank you for coming into I am sorry that you are continuing to suffer with this lower abdominal/pelvic pain. Workup in the emergency department today's actually very reassuring. Your urine shows bacteria and white cells so I am going to treat you for 10 days with nitrofurantoin/Macrobid for urinary tract infection. There is no evidence of sepsis, acute systemic infection, masses or tumors in your abdomen, your uterus, tissue around the uterus and ovaries, kidneys, colon, appendix all look reassuringly normal. Another possibility that bears consideration and further discussion with your primary care doctor is interstitial cystitis. This is inflammation within the bladder wall that is quite painful and can be challenging to deal with. I have given you a prescription for dicyclomine/Bentyl. This is a smooth muscle relaxing medication that can help with pain from abdominal/bowel cramping and may help with bladder spasm type pain. Prescriptions have been sent to [facility] in [place] Using 400 mg of ibuprofen (2 [id number] pills) and 1 Tylenol every 6 hours can be very helpful in controlling pain. I encourage you to contact your primary care doctor again let them know that again you are in the emergency department and need urgent follow-up. If you feel that you are getting worse, develop new findings or have further questions please feel free to return to the emergency department Prescriptions: New nitrofurantoin monohyd/m-cryst [Macrobid] 100 mg capsule 100 mg PO BID Qty: 20 0RF Rx Instructions: must administer with a meal/food dicyclomine 20 mg tablet 20 mg PO TID Qty: 20 1RF No Action ondansetron 4 mg tablet,disintegrating 4 mg PO Q8H PRN (Reason: nausea and vomiting) Qty: 10 0RF ondansetron 4 mg tablet,disintegrating 4 mg PO Q8H PRN (Reason: nausea and vomiting) Qty: 10 0RF Referrals: ProviderCarlos [Primary Care Provider] - Stand Alone Forms: Patient Portal/API, Work Release Note
[2023-11-12 18:50] LABS: Bacteria Urine Moderate (10-30); RBC Urine 1-5/HPF (0-5/HPF); Urine Volume 10mL (spun); WBC Urine 10-30/HPF (0-5/HPF)
[2023-11-12 18:51] LABS: Calcium Oxalate Crystals Urine Few; Culture Indicated Urine Specimen Cultured; Squamous Epithelial Cell Urine 10-30 /HPF (0-5/HPF)
[2023-11-12 19:02] LABS: Add Manual Diff / Slide Review NO; Basophils Absolute Auto 0 /uL (0-100); Basophils Percent Auto 0.3 % (0-2); Eosinophils Absolute Auto 100 /uL (0-450); Eosinophils Percent Auto 1.3 % (2-4); Hematocrit 38.3 % (36-46); Lymphocytes Absolute Auto 3300 /uL (1100-4500); Lymphocytes Percent Auto 31.1 % (25-40); Mean Corpuscular HGB Conc 34.1 % (30-36); Mean Corpuscular Hemoglobin 28.3 PG (26-34); Mean Corpuscular Volume 83.1 fL (80-100); Monocytes Absolute Auto 600 /uL (0-900); Monocytes Percent Auto 5.9 % (3-14); Neutrophils Absolute Auto 6600 /uL (1500-7000); Neutrophils Percent Auto 61.4 % (50-75); Platelet Count 330 X10^3/uL (150-400); Red Blood Cell Count 4.61 X10^6/uL (4.0-5.2); Red Cell Distribution Width 13.5 % (11.6-14.8); White Blood Cell Count 10.7 X10^3/uL (4.5-11.0)
--- NOTE | 2023-11-12 19:03 | DI.CT.S_ITS ---
PROCEDURE: CT ABDOMEN PELVIS W CON INDICATIONS: low abdominal pain for 4 months TECHNIQUE: After the administration of intravenous contrast, axial sections acquired from the lung bases to the pubic symphysis. Coronal and sagittal reformats were performed. For radiation dose reduction, the following was used: automated exposure control, adjustment of mA and/or kV according to patient size. COMPARISON: None. FINDINGS: Image quality: Diagnostic. Lower Chest: Trace bilateral pleural effusion is seen. Adjacent bibasilar dependent atelectasis are noted. Heart size is normal, no pericardial effusion. ABDOMEN: Liver: No solid mass. Gallbladder: No radiopaque gallstones or gallbladder wall thickening. Biliary ducts: No biliary dilation. Pancreas: No ductal dilation. Spleen: Size is within normal limits. Adrenal Glands: No adrenal nodules. Kidneys and Ureters: No hydronephrosis. No solid mass. No complex renal cystic lesion which requires follow up. Stomach and Bowel: Normal colonic caliber, without significant wall thickening. Appendix is visualized and is normal in size and appearance. Mild fecal stasis in the colon is seen. No abscess collection. Peritoneum: No abnormal intraperitoneal fluid. No free air. Ventral Wall: No significant ventral hernia. Abdominal Nodes: No retroperitoneal or mesenteric adenopathy by size criteria. Vessels: Aorta and inferior vena cava are normal in size. PELVIS: Pelvic Organs: There is suggestion of a 2.4 x 2.1 cm right ovarian cyst. No gross abnormality is seen in uterus and left ovary. Bladder: Questionable diffuse bladder wall thickening is seen, no discrete bladder wall mass. Pelvic Nodes: No enlarged lymph nodes. Miscellaneous: No inguinal hernias are seen. Bones: No aggressive osseous abnormality. IMPRESSION: 1. No bowel obstruction or abnormal bowel wall thickening. Normal appendix. No free fluid or free air. 2. Possible right ovarian cyst measures 2.4 x 2.1 cm in size. 3. Questionable bladder wall thickening, concerning for low-grade cystitis versus under distension. No gross bladder wall mass. No renal stones or hydronephrosis. Dictated by: Fabian Fernando M.D. on 11/12/2023 at 19:27 Approved by: Fabian Fernando M.D. on 11/12/2023 at 19:29
[2023-11-12 19:15] LABS: Alanine Aminotransferase 13 IU/L (<35); Albumin Globulin Ratio 1.4 (1.0-2.8); Alkaline Phosphatase 43 U/L (38-126); Aspartate Aminotransferase 20 IU/L (14-36); BUN Creatinine Ratio 12.3 (6-22); Bilirubin Total 0.3 mg/dL (0.2-1.3); Blood Urea Nitrogen 7 mg/dL (7-17); Calcium 8.8 mg/dL (8.4-10.2); Carbon Dioxide 25 mmol/L (22-32); Chloride 103 mmol/L (98-107); Estimated Glomerular Filt Rate > 60 mL/min (>60); Globulin 2.9 g/dL (1.7-4.1); Glucose 116 mg/dL (70-100); HEMOLYSIS < 15 (0-50); Lipase 74 U/L (23-300); Potassium 3.6 mmol/L (3.4-5.1); Sodium 139 mmol/L (137-145); Total Protein 6.9 g/dL (6.3-8.2)
[2023-11-12] MEDS: SODIUM CHLORIDE 0.9% 1,000 ML 1000 ML IV (19:19)
[2023-11-12] MEDS: ONDANSETRON 4 MG/2 ML INJ IV (19:20)
[2023-11-12] MEDS: KETOROLAC 30 MG/ML VIAL 15 MG IV (19:20)
[2023-11-12] MEDS: DICYCLOMINE 10 MG CAPSULE 20 MG PO (20:14)
[2023-11-12 20:47] VITALS: BP 111/67; PULSE 74; RESP 16; O2SAT 100
== END 2023-11-12 21:05 | disposition home or self-care (01) ==
PROVIDERS: Emergency Provider Emergency Medicine
DX: N30.01 Acute cystitis with hematuria (principal); R10.2 Pelvic and perineal pain
CPT/HCPCS: 36415; 74177; 80053; 81003; 81015; 81025; 83690; 85025; 87086; 87147; 96361; 96374; 96375; 99284; J1885; J2405; Q9967